=== PATIENT | female | born 1985 | race Caucasian/White ===

== ENCOUNTER 2018-07-23 21:19 | Emergency (ER) | payer OTHER ==
[~2018-07-23] VITALS: Ht 160 cm; Wt 65.8 kg
[2018-07-24 02:55] VITALS: BP 114/67
== END 2018-07-24 03:42 | disposition home or self-care (01) ==
LOC: ER 21:21
DX: R51 Headache (principal); E07.9 Disorder of thyroid, unspecified
CPT/HCPCS: 81025